=== PATIENT | male | born 1995 | race Hispanic/Latino ===

== ENCOUNTER 2018-07-04 20:53 | Emergency (ER) | payer OTHER ==
[2018-07-04] MEDS: LIDOCAINE 2% MDV 20 ML VIAL SC (22:45)
== END 2018-07-04 23:38 | disposition home or self-care (01) ==
LOC: M ED 20:53
DX: S61.214A Laceration without foreign body of right ring finger without damage to nail, initial encounter (principal); W22.09XA Striking against other stationary object, initial encounter; Y92.39 Other specified sports and athletic area as the place of occurrence of the external cause; Y93.B3 Activity, free weights
CPT/HCPCS: 73140